=== PATIENT | male | born 1970 | race Caucasian/White ===

== ENCOUNTER 2017-01-12 23:14 | Observation (INO) | payer BC ==
[2017-01-12 23:22] VITALS: RESP 18
[2017-01-12] MEDS ORDERED: SODIUM CHLORIDE 0.9% 1,000 ML IV ONE (23:55)
--- NOTE | 2017-01-12 23:55 | ED ---
General Adult HPI - General Chief complaint: ENT Stated complaint: Throat problem Time Seen by Provider: 01/12/17 23:44 Source: patient, family, RN notes reviewed, old records reviewed Mode of arrival: ambulatory Limitations: no limitations - History of Present Illness Initial comments: this is a 46-year-old male to the ER for evaluation of inability to swallow, patient's transfer patient from [facility] for evaluation by GI secondary to aphasia. Patient is unable to drink, the symptoms occurred spontaneously tonight but have been progressing for about 2 years. Patient has multiple GI or barium swallow evaluations no formal GI evaluations for endoscopy. Patient denies any abdominal pain no chest pain denies foreign body. - Related Data Home Medications Medication Instructions Recorded Confirmed Lisinopril [Zestril] 5 mg PO DAILY 01/12/17 01/12/17 Allergies Allergy/AdvReac Type Severity Reaction Status Date / Time No Known Allergies Allergy Verified 01/12/17 23:38 Review of Systems ROS Statement: Those systems with pertinent positive or pertinent negative responses have been documented in the HPI. ROS Other: All systems not noted in ROS Statement are negative. Past Medical History Past Medical History: Hypertension History of Any Multi-Drug Resistant Organisms: None Reported Past Surgical History: Hernia Repair Past Psychological History: No Psychological Hx Reported Smoking Status: Never smoker Past Alcohol Use History: None Reported Past Drug Use History: None Reported General Exam - General Exam Comments Initial Comments: patient is unable to swallow 5 miles of water Limitations: no limitations General appearance: alert, in no apparent distress Head exam: Present: atraumatic, normocephalic, normal inspection Eye exam: Present: normal appearance, PERRL, EOMI. Absent: scleral icterus, conjunctival injection, periorbital swelling ENT exam: Present: normal exam, mucous membranes moist Neck exam: Present: normal inspection. Absent: tenderness, meningismus, lymphadenopathy Respiratory exam: Present: normal lung sounds bilaterally. Absent: respiratory distress, wheezes, rales, rhonchi, stridor Cardiovascular Exam: Present: regular rate, normal rhythm, normal heart sounds. Absent: systolic murmur, diastolic murmur, rubs, gallop, clicks GI/Abdominal exam: Present: soft, normal bowel sounds. Absent: distended, tenderness, guarding, rebound, rigid Extremities exam: Present: normal inspection, full ROM, normal capillary refill. Absent: tenderness, pedal edema, joint swelling, calf tenderness Back exam: Present: normal inspection Neurological exam: Present: alert, oriented X3, CN II-XII intact Psychiatric exam: Present: normal affect, normal mood Skin exam: Present: warm, dry, intact, normal color. Absent: rash Course Vital Signs 01/12/17 23:18 Temperature 97.8 F Pulse Rate 69 Respiratory 18 Rate Blood Pressure 143/85 O2 Sat by Pulse 98 Oximetry - Reevaluation(s) Reevaluation #1: 01/12/17 23:[address] Rocha for GI, will see patient in the a.m. for EGD Medical Decision Making - Medical Decision Making 46 the ER for evaluation, patient able to swallow, patient to be admitted for evaluation by GI, upper GI Disposition Clinical Impression: Dysphagia, Aphagia, Esophageal dysmotility Disposition: ADMITTED IP TO THIS [facility] Condition: Good Referrals: Adonay To MD [Primary Care Provider] - 1-2 days
[2017-01-13 00:38] VITALS: BMI 29.6
[2017-01-13] MEDS ORDERED: ONDANSETRON 4 MG/2 ML VIAL IVP PRN (02:01)
--- NOTE | 2017-01-13 02:04 | P.HPIM ---
History of Present Illness H&P Date: 01/13/17 Chief Complaint: Transfer for aphagia The patient is a 46-year-old male with a past with a history of hypertension who is transferred here from [facility] for further workup of his dysphagia for solids with new aphasia with liquids starting today. Apparently the patient had steak for dinner and as usual he had trouble swallowing with feeling like it was stuck in his esophagus, he tried to Moe with fluids but was unable to swallow and subsequently regurgitated his fluids. The patient reports that this is been an ongoing problem for the last 3 years he reports last having a barium swallow done approximately 2 years ago. The patient was apparently supposed to follow-up with GI in the outpatient setting but never did so, the patient does complain of some GERD-like symptoms which include belching and bloating and flatulence with mild pyrosis-type symptoms, he denies any abdominal pain diarrhea or constipation or nausea. Denies any rashes, skin color changes. Review of Systems All other 14 point R/o Systems negative except per HPI Past Medical History Past Medical History: Hypertension History of Any Multi-Drug Resistant Organisms: None Reported Past Surgical History: Hernia Repair Additional Past Surgical History / Comment(s): Sinus surgery and had lots of broken bones in the past. Past Anesthesia/Blood Transfusion Reactions: No Reported Reaction Smoking Status: Never smoker - Past Family History Mother Family Medical History: Hypertension Additional Family Medical History / Comment(s): pre-diabetic Father History Unknown: Yes Medications and Allergies Home Medications Medication Instructions Recorded Confirmed Type Lisinopril [Zestril] 5 mg PO DAILY 01/12/17 01/13/17 History Allergies Allergy/AdvReac Type Severity Reaction Status Date / Time No Known Allergies Allergy Verified 01/13/17 00:28 Physical Exam Vitals: Vital Signs Temp Pulse Pulse Resp BP BP Pulse Ox 01/13/17 00:44 97.5 F L 67 18 111/88 97 01/13/17 00:18 69 18 152/96 95 01/12/17 23:18 97.8 F 69 18 143/85 98 Intake and Output 01/12/17 01/12/17 01/13/17 14:59 22:59 06:59 Other: Weight 88.4 kg Patient Weight 01/13/17 06:59 Weight 88.4 kg Constitutional: No acute distress, conversant, pleasant Eyes: Anicteric sclerae, moist conjunctiva, no lid-lag, PERRLA ENMT: NC/AT,Oropharynx clear, no erythema, exudates Neck:Supple, FROM, no masses, or JVD, No carotid bruits; No thyromegaly Lungs: Clear to auscultation, Clear to percussion, Normal respiratory effort, no accessory muscle use Cardiovascular: Heart regular in rate and rhythm, No murmurs, gallops, or rubs no peripheral edema Abdominal: Soft Nontender, nom distended, no guarding, no rebound or rigidity, Normoactive bowel sounds No hepatomegaly, No splenomegaly, No palpable mass No abdominal wall hernia noted Skin: Normal temperature, tone, texture, turgor, No induration No subcutaneous nodules, No rash, lesions, No ulcers Extremities:No digital cyanosis No clubbing, Pedal pulses intact and symmetrical Radial pulses intact and symmetrical Normal gait and station, No calf tenderness Psychiatric: Alert and oriented to person, place and time, Appropriate affect Intact judgement Neuro: Muscles Strength 5/5 in all 4 extremities, Sensation to light touch grossly present throughout, Cranial nerves II-XII grossly intact. No focal sensory deficits Lungs are Thrombosis Risk Factor Assmnt - Choose All That Apply Each Factor Represents 1 point: Age 41-60 years Thrombosis Risk Factor Assessment Total Risk Factor Score: 1 Thrombosis Risk Factor Assessment Level: Low Risk Assessment and Plan (1) GERD (gastroesophageal reflux disease) Current Visit: Yes Status: Acute Code(s): K21.9 - GASTRO-ESOPHAGEAL REFLUX DISEASE WITHOUT ESOPHAGITIS SNOMED Code(s): 825327441 (2) Aphagia Current Visit: Yes Status: Acute Code(s): R13.0 - APHAGIA SNOMED Code(s): 33325651 (3) Essential hypertension Current Visit: Yes Status: Acute Code(s): I10 - ESSENTIAL (PRIMARY) HYPERTENSION SNOMED Code(s): 68518318 Plan: The patient is placed in observation anticipate a less than to TWO midnight stay for dysphagia with new onset aphasia to liquids will consult GI as a patient will likely need a EGD, will order a barium swallow eval. We'll check labs this morning and await further recommendations from GI . Continue to follow his clinical course
[2017-01-13 07:24] LABS: Basophils % (A) 1 %; CH 30.9; CHCM 33.3; Eosinophils # (A) 0.1 k/uL (0-0.7); Eosinophils % (A) 2 %; HCT 43.5 % (39.0-53.0); HDW 2.73; HGB 13.9 gm/dL (13.0-17.5); Luc # (Auto) 0.16; Luc % (Auto) 2; Lymphocytes # (A) 1.6 k/uL (1.0-4.8); Lymphocytes % (A) 18 %; MCH 29.8 pg (25.0-35.0); MCV 93.3 fL (80.0-100.0); Mean Platelet Volume 7.1; Monocytes # (A) 0.4 k/uL (0-1.0); Monocytes % (A) 5 %; Neutrophils # (A) 6.7 k/uL (1.3-7.7); Neutrophils % (A) 74 %; RBC 4.66 m/uL (4.30-5.90); RDW 13.3 % (11.5-15.5); WBC 9.1 k/uL (3.8-10.6); WBC (Perox) 9.52
[2017-01-13 07:25] VITALS: TEMP 98.1
[2017-01-13] MEDS ORDERED: PROPOFOL 10 MG/ML 20 ML VIAL IV ONE (07:25)
[2017-01-13] MEDS ORDERED: IV FLUID CONTINUATION 300 ML IV ONE (07:27)
--- NOTE | 2017-01-13 07:39 | P.PCN ---
Date of Procedure: 01/13/17 Procedure(s) Performed: BRIEF HISTORY: Patient is a 46-year-old, pleasant, white male, was transferred from [facility]. He was eating steak for dinner last night and could not swallow any further. Scheduled for an upper endoscopy for acute dysphagia. PROCEDURE PERFORMED: Esophagogastroduodenoscopy with biopsy. PREOPERATIVE DIAGNOSIS: Acute food dysphagia. IV sedation per anesthesia. PROCEDURE: After informed consent was obtained, the patient was brought into the endoscopy unit. IV sedation was administered by Anesthesia under continuous monitoring. Initially the Olympus GIF-140 video endoscope was inserted into the mouth. Esophagus intubated without any difficulty. It was gradually advanced into the distal esophagus. There was a large piece of meat impacted. Using a snare the piece of meat was gently pulled out of the mouth. Repeat EGD was performed and esophagus intubated without any difficulty and was gradually advanced into the stomach and duodenum and carefully examined. The bulb and the second part of the duodenum appeared normal. The scope at this time was withdrawn to the stomach, adequately insufflated with air, and upon careful examination, mucosa of the antrum, body, cardia and the fundus appeared normal. The scope was then withdrawn into the esophagus. The GE junction was located at 39 cm from the incisors. There were multiple superficial rings thickened esophageal folds with a longitudinal ridges and 4 was consistent with years of age esophagitis and multiple biopsies were done from the esophagus. The patient tolerated the procedure well. IMPRESSION: 1. Large piece of meat impacted in the distal esophagus status post removal as described above. 2. Multiple superficial rings and thickened esophageal folds involving the entire esophagus consistent with years of age esophagitis. RECOMMENDATIONS: The findings of this examination were discussed with the patient . He was advised to follow with the biopsy results.. He will be started on Prilosec 20 minutes grams twice daily for 8 weeks and he will follow up in office in a month. Patient can be discharged home today.
--- NOTE | 2017-01-13 07:47 | CONS ---
CONSULTATION REQUESTING PHYSICIAN: Dr. Carreon REASON FOR CONSULTATION: Acute food dysphagia. HISTORY OF PRESENT ILLNESS: The patient is a 46-year-old white male who was transferred from [facility] after he was having difficulty swallowing dinner. He ate a small piece of steak. After that, he could not swallow any further. He tried to throw up and he feels the food is stuck in his mid esophagus. He had been having these symptoms on and off for the last 2 years duration. Never had any further workup in the past. He has these episodes that happen once or twice a week usually with bread and meat. Presently he is not able to swallow his saliva. He denies any chest pain. PAST MEDICAL HISTORY: Hypertension. PAST SURGICAL HISTORY: Hernia repair. MEDICATIONS: At home, lisinopril. ALLERGIES: No known drug allergies. SOCIAL HISTORY: No smoking or alcohol use. FAMILY HISTORY: Unremarkable. REVIEW OF SYSTEMS: CARDIOPULMONARY: No chest pain, shortness of breath. GENITOURINARY: No dysuria, hematuria. MUSCULOSKELETAL: Unremarkable. SKIN: Unremarkable. ENDOCRINE: Unremarkable. PSYCHIATRIC: Unremarkable NEUROLOGY: Unremarkable. ENT/VISION: Unremarkable CONSTITUTIONAL: No recent weight loss. No fever, chills or night sweats. PHYSICAL EXAMINATION: Appears comfortable, no apparent distress. VITAL SIGNS: Stable. Blood pressure 143/85, pulse is 69, temperature 97. HEENT examination unremarkable. Conjunctivae pink. Sclerae anicteric. Oral cavity no lesions. NECK: No jugular venous distention or lymph node enlargement. CHEST: Clear to auscultation. HEART: Regular rate and rhythm. ABDOMEN: Soft, bowel sounds are positive. No organomegaly. EXTREMITIES: No pedal edema. SKIN: No rashes. NEURO: He is alert and oriented x3. No focal deficits. LABS: No labs available at the time of this dictation. IMPRESSION: Acute food dysphagia. The patient was having steak for dinner last night. Swallowed 2 small pieces and could not swallow any further. He has been having intermittent dysphagia to solids for the last 2 years duration. Most likely we are dealing with either gastroesophageal reflux or eosinophilic esophagitis. RECOMMENDATIONS: 1. We will proceed with an upper endoscopy today. 2. Discussed with the patient risks, benefits, and complications and he is agreeable to it. 3. Further recommendations will follow following the upper endoscopy. Thank you for this consultation. MMODL / IJN: [id number] /
[2017-01-13 07:50] LABS: ALT 33 U/L (21-72); AST 19 U/L (17-59); Alkaline Phosphatase 102 U/L (38-126); Anion Gap 9 mmol/L; Blood Urea Nitrogen 16 mg/dL (9-20); Calcium 9.1 mg/dL (8.4-10.2); Carbon Dioxide 23 mmol/L (22-30); Chloride 109 mmol/L (98-107); Glucose 87 mg/dL (74-99); Non-African American GFR(MDRD) >60 (>60 ml/min/1.73 sqM); Potassium 4.3 mmol/L (3.5-5.1); Sodium 141 mmol/L (137-145); Total Bilirubin 1.4 mg/dL (0.2-1.3); Total Protein 6.7 g/dL (6.3-8.2)
[2017-01-13 08:30] VITALS: BP 107/65; PULSE 54
[2017-01-13] MEDS ORDERED: PANTOPRAZOLE 40 MG/10 ML VIAL IVP SCH (09:00)
--- NOTE | 2017-01-13 16:02 | P.DS ---
Providers Date of admission: 01/12/17 23:57 Expected date of discharge: 01/13/17 Attending physician: Sotero Carreon MD Consults: Gastroenterology Dr. Rocha Primary care physician: Adonay To - Todd Diagnosis(es) (1) Esophageal obstruction due to food impaction Status: Resolved (2) Essential hypertension Status: Acute (3) GERD (gastroesophageal reflux disease) Status: Chronic Hospital Course: Patient is a 46-year-old male past medical history of hypertension who was transferred here from [facility] for further workup or dysphasia wit SOLIDS and liquids after eating steak. Vitals and laboratory analysis were essentially unremarkable. Dr. Rocha GI was consult that. Patient went for an EGD on the morning of 01/13 which showed large piece of meat impacted in the distal esophagus which was removed, multiple superficial rains, and thickened esophageal folds consistent with years of esophagitis. Biopsy was performed. He was able to tolerate a full liquid diet at lunch after his procedure. GI commended proton ex-20 mg twice a day for 8 weeks and follow-up in their office in one month. He was tolerating a diet and was therefore determined stable for discharge home. Patient seen and examined at bedside. No more nausea, vomiting, or inability to swallow solids and liquids. Discussed the findings of his EGD as documented above. Patient is aware of the condition and ensures that he will follow-up with Dr. Rocha. Vital signs reviewed and stable. General: non toxic, no distress, appears at stated age Derm: warm, dry Head: atraumatic, normocephalic, symmetric Eyes: EOMI, no lid lag, anicteric sclera Mouth: no lip lesion, mucus membranes moist Cardiovascular: S1S2 reg, no murmur, positive posterior tibial pulse bilateral, Lungs: CTA bilateral, no rhonchi, no rales , no accessory muscle use Abdominal: soft, nontender to palpation, no guarding, no appreciable organomegaly Ext: no gross muscle atrophy, no edema, no contractures Neuro: CN II-XI grossly intact, no focal neuro deficits Psych: Alert, oriented, appropriate affect A total of 25 minutes of time were spent preparing this complex discharge summary . Procedures: EGD 01/13 with removal of food bolus Patient Condition at Discharge: Good Plan - Discharge Summary New Discharge Prescriptions: New Omeprazole [PriLOSEC] 20 mg PO AC-BID #60 cap Continue Lisinopril [Zestril] 5 mg PO DAILY Discharge Medication List Lisinopril [Zestril] 5 mg PO DAILY 01/12/17 [History] Omeprazole [PriLOSEC] 20 mg PO AC-BID #60 cap 01/13/17 [Rx] Follow up Appointment(s)/Referral(s): Elizabeth Rocha MD [STAFF PHYSICIAN] - 02/12/17 10:00 am ([place] office) Adonay To MD [Primary Care Provider] - 1-2 days Patient Instructions/Handouts: Esophageal Foreign Body (GEN) Activity/Diet/Wound Care/Special Instructions: Soft and [place] diet, activity as tolerated Discharge Disposition: HOME SELF-CARE
== END 2017-01-13 13:52 | disposition home or self-care (01) ==
LOC: EC 23:14 → SUPCPDRO 23:14 → 3OBS 23:57
PROVIDERS: ADMIT Family Medicine; ATTEND Family Medicine
DX: T18.128A Food in esophagus causing other injury, initial encounter (principal); I10 Essential (primary) hypertension; Z79.899 Other long term (current) drug therapy; K21.9 Gastro-esophageal reflux disease without esophagitis; X58.XXXA Exposure to other specified factors, initial encounter; Y93.89 Activity, other specified; K20.9 Esophagitis, unspecified; K29.50 Unspecified chronic gastritis without bleeding
CPT/HCPCS: 99284 ×2; 96360; 96361; 88305; 80053; 85025; 88342; 43239; 43247; G0378 ×2; J2704; C9113; 96374; 96375; 96376

== ENCOUNTER → 2023-03-24 | Outpatient (CLI) | payer BC ==
--- NOTE | 2023-03-24 16:33 | P.SLEEP ---
History of Present Illness H&P Date: 03/24/23 This is a 52-year-old male patient who was referred to me for due to concerns of obstructive sleep apnea. The patient lives in [place]. 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 He lives with his girlfriend. He is living in a separate bedroom because of his loud snoring. More recently, the patient has done major lifestyle changes and he has lost consider amount of weight and currently is weighing around 296 pounds and his body mass index is dropped from 35 down to 30. No major hypersomnia or sleepiness during the day. He seems to be fully functional at this point in time. However, he has been noted to quits breathing at nighttime and occasionally has woken himself up because of a loud snoring and gas. No nocturia. Does not take any naps during the day. He sleeps between 11 PM and 6 AM in the morning. On weekends, he maintains the same schedule. No alcoholism. No substance abuse. No smoking history. Based on that, the patient was referred to me for sleep apnea evaluation. No restlessness in lower extremity. No sleep paralysis. No hallucinations. No cataplexy. No nightmares. No night terrors. No nighttime heartburn or shortness of breath or any other form of headaches. No personal or family history of obstructive sleep apnea Review of Systems Constitutional: Denies chills, Denies fever Eyes: denies as per HPI, denies blurred vision, denies bulging eye, denies decreased vision, denies diplopia, denies discharge, denies dry eye, denies irritation, denies itching, denies pain, denies photophobia, denies loss of peripheral vision, denies loss of vision, denies tunnel vision/blind spots Ears: deny: decreased hearing, ear discharge, earache, tinnitus Ears, nose, mouth and throat: Reports as per HPI Breasts: absent: as per HPI, gynecomastia Cardiovascular: Reports as per HPI Respiratory: Reports snoring Gastrointestinal: Reports as per HPI Genitourinary: Reports as per HPI, Reports decreased libido Musculoskeletal: Reports as per HPI Musculoskeletal: absent: ankle pain, ankle stiffness, ankle swelling, as per HPI, elbow pain, elbow stiffness, elbow swelling, foot pain, foot stiffness, foot swelling, hand pain, hand stiffness, hand swelling, hip pain, hip stiffness, hip swelling, knee pain, knee stiffness, knee swelling, shoulder pain, shoulder stiffness, shoulder swelling, wrist pain, wrist stiffness, wrist swelling Integumentary: Reports as per HPI Neurological: Reports as per HPI Psychiatric: Reports as per HPI Endocrine: Reports as per HPI Hematologic/Lymphatic: Reports as per HPI Past Medical History Past Medical History: Hyperlipidemia, Hypertension History of Any Multi-Drug Resistant Organisms: None Reported Past Surgical History: Hernia Repair Additional Past Surgical History / Comment(s): Sinus surgery and had lots of broken bones in the past. Past Anesthesia/Blood Transfusion Reactions: No Reported Reaction Past Psychological History: No Psychological Hx Reported Past Alcohol Use History: None Reported Past Drug Use History: None Reported - Past Family History Mother Family Medical History: Hypertension Additional Family Medical History / Comment(s): pre-diabetic Father History Unknown: Yes Medications and Allergies Home Medications Medication Instructions Recorded Confirmed Type lisinopriL [Zestril] 5 mg PO DAILY 01/12/17 01/13/17 History Omeprazole [PriLOSEC] 20 mg PO AC-BID #60 cap 01/13/17 Rx Allergies Allergy/AdvReac Type Severity Reaction Status Date / Time No Known Allergies Allergy Verified 01/13/17 00:28 Physical Exam BP is 124/86 with a pulse of 90 and respiration of 16 and a temperature is 97.9. Weight is 196 pounds, height is 5 7 and a body mass index is 30.5. Upper scores of 2. The size of the neck is 16.5 inches. Pulse ox is 97% on room air oxygen. The patient appeared well nourished and normally developed. Vital signs as documented. Head exam is unremarkable. No scleral icterus or corneal arcus noted. Neck is without jugular venous distension, thyromegaly, or carotid bruits. The patient is a Mallampati class IV with significant crowding of the posterior pharynx. Carotid upstrokes are brisk bilaterally. Lungs are clear to auscultation and percussion. Cardiac exam reveals the PMI to be normally sized and situated. Rhythm is regular. First and second heart sounds normal. No murmurs, rubs or gallops. Abdominal exam reveals normal bowel sounds, no masses, no organomegaly and no aortic enlargement. Extremities are nonedematous and both femoral and pedal pulses are normal. Examination of the skin revealed no evidence of significant rashes, suspicious appearing nevi or other concerning lesions. Neurologically, the patient is awake and alert and the patient does not have any focal neurological deficit. Cranial nerves are essentially intact. Assessment and Plan Plan: Snoring with occasional apneas. No major hypersomnia or sleepiness. And[place] score is at 2 Obesity with significant weight loss and the patient has dropped his weight and the current body mass index is 30.5 Hypertension Hyperlipidemia No major fatigue or sleepiness and the patient carries an And[place] score of 2. Plan Low clinical suspicion for obstructive sleep apnea. The patient is going to undergo a home sleep study to evaluate the presence and severity of sleep apnea and decide if treatment is needed accordingly. He is maintaining good sleep hygiene measures. His comorbid conditions are being treated. Encouraged further weight loss. Will continue to follow. Sleep Note - Sleep Note Sleep Note: Temperature: Pulse Rate: Respiratory Rate: Blood Pressure: SpO2: Height: Weight: BMI: Neck Circumference:
== END ==
LOC: 3 N SLEEP 15:11
PROVIDERS: ATTEND Internal Medicine Critical Care Medicine
DX: G47.33 Obstructive sleep apnea (adult) (pediatric) (principal); E78.5 Hyperlipidemia, unspecified; I10 Essential (primary) hypertension; R06.83 Snoring; E66.9 Obesity, unspecified; Z98.890 Other specified postprocedural states; Z68.30 Body mass index [BMI] 30.0-30.9, adult; Z79.899 Other long term (current) drug therapy
CPT/HCPCS: 99202

== ENCOUNTER → 2023-04-02 | Outpatient (CLI) | payer BC ==
--- NOTE | 2023-04-13 22:43 | P.PCN ---
Date of Procedure: 04/02/23 Operative Findings: Home sleep study testing Date of services 04/02/2023 Pertinent history This is a 52-year-old male patient referred to me due to concerns of obstructive sleep apnea. 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 He has history of loud snoring. He is obese and he has lost significant amount of weight and his body mass index has dropped from 35 down to 30. No major hypersomnia or sleepiness during the day. He seems to be fully functional at work. His current Du Pont score is at 2. He has hypertension hyperlipidemia's comorbid conditions Pertinent physical findings the patient has a weight of 196 pounds with a body mass index of 30.5. His height is 5 feet and 7 inches Technical description The Unigo neck system was used to complete this type III home sleep study. The total recording duration was 7 hours and 12 minutes. The study started 9:34 PM and ended at 4:46 AM. This patient had a total of 6 hours and 49 minutes of fluoroscopy evaluation 6 hours and 49 minutes of oxygen saturation evaluation. Results Respiratory evaluation showed a total of 1 obstructive apnea and 37 obstructive hypopneas. The patient's resulting AHI was 5 Oxygenation analysis No significant nocturnal oxygen saturation were encountered and the patient spent only 3 minutes of the sleep time below pulse ox of 89%. Average pulse ox during sleep was 95% Cardiac summary Average heart rate was 56 minimum heart of 44 maximum heart rate was 100 Assessment Snoring without any significant obstructive sleep apnea and the patient's AHI is 5. No associated nocturnal oxygen saturations No hypersomnia and the patient has an Du Pont score of 2 Hypertension Hyperlipidemia Obesity with ongoing weight loss and the patient has a body mass index is 30.5 Plan Encouraged further weight loss. The patient is already lost significant amount of weight and his body mass index is currently down to 30. Maintain good sleep hygiene measures. Maintain regular sleep schedule. No need for CPAP therapy.
== END ==
LOC: 3 N SLEEP 13:48
PROVIDERS: ATTEND Internal Medicine Critical Care Medicine
DX: G47.33 Obstructive sleep apnea (adult) (pediatric) (principal); I10 Essential (primary) hypertension; E78.5 Hyperlipidemia, unspecified; E66.9 Obesity, unspecified; Z68.35 Body mass index [BMI] 35.0-35.9, adult; Z79.899 Other long term (current) drug therapy